=== PATIENT | female | born 1945 | race Caucasian/White ===

== ENCOUNTER 2017-04-13 16:37 | Observation (INO) | payer MEDICARE, OTHER ==
[~2017-04-13 16:37] MED LIST: ACETAMINOPHEN500 M4 PO; ACTOS45 MG PO; ADDERALL 10 MG10 M2 PO; ADDERALL PO; ADULT LOW DOSE81 M1 PO; ADVAIR HFA 115-12 GM IH; ADVAIR INHALER; ALLEGRA ALLERGY60 MG PO; ALLEGRA-D1 TAB PO; ALLEGRA30 MG PO; ALLERGY RELIEF10 M9 PO; ALTACE10 MG; AMITRIPTYLINE H50 MG PO; AMITRIPTYLINE100 MG PO; AMPHETAMINE SAL10 M1 PO; ANALGESIC BALM30 G1 EXT; ANTIBIOTIC; ANUCORT-HC25 M2 RC; ANUSOL-HC25 MG RC; APAP; ASPIR 8181 M1 PO; ASPIR 8181 MG PO; ASPIR-LOW81 M1 PO; ASPIRIN EC81 MG PO; ASPIRIN325 M3 PO; ATIVAN0.5 M1 PO; B COMPLETE1 EACH PO; BABY ASPIRIN81 MG; BACTRIM DS TAB1 EAC2 PO; BACTROBAN22 G1 TOP; BACTROBAN22 G1 TP; BENZONATATE100 MG PO; BISACODYL5 M1 PO; BUSPAR15 MG PO; BUSPIRONE HCL15 MG PO; CELEBREX200 M1 PO; CETIRIZINE HCL10 M1 PO; CIPRO250 M2 PO; CLONAZEPAM1 MG PO; CLONAZEPAM2 MG PO; COLACE100 M1 PO; COLACE100 MG PO; CPAP; CRANBERRY TABL1 EAC1 PO; CRANBERRY TABL1 EACH PO; CRANBERRY200 M1 PO; CRANBERRY500 M2 PO; CRESTOR20 MG PO; CYMBALTA30 MG PO; CYMBALTA60 M1 PO; CYMBALTA60 MG PO; DAZIDOX10 MG PO; DELTASONE10 MG PO; DETROL LA4 M1 PO; DIAZEPAM10 MG PO; DIAZEPAM5 M PO; DIAZEPAM5 M1 NG; DIPHENOXYLATE-1 EAC1 PO; DITROPAN XL15 MG PO; DITROPAN XL5 M3 PO; DITROPAN5 MG PO; DOC-Q-LACE100 M2 PO; DULCOLAX5 M1 PO; DULOXETINE HCL60 M1 PO; DURAGESIC1 EAC4 TOP; DURAGESIC1 PATCH TOP; EFFEXOR75 MG PO; ELAVIL100 MG PO; EUCERIN CREME TP; EUCERIN CREME60 GM TP; FENTANYL1 EAC5 TOP; FENTANYL1 PATCH . TOP; FLONASE16 G1; FLONASE16 GM NS; FUROSEMIDE20 MG PO; GLIPIZIDE ER5 M1 PO; GLIPIZIDE XL10 MG PO; GLIPIZIDE XL5 MG PO; GLUCAGON EME1 MG/KIT IM; GLUCERNA1 EACH PO; HUMALOG SQ; HUMALOG100 U/ML SQ; HUMALOG100 UNIT/2 SC; HYDROCODONE/APA1 CAP; IBUPROFEN800 M1 PO; IBUPROFEN800 MG PO; IMITREX100 M2 PO; IMODIUM2 MG PO; IPRATR-ALBUTEROL3 ML IH; KEFLEX500 M1 PO; KLONOPIN0.5 M1 PO; LANTUS100 U/ML; LANTUS100 U/ML SC; LASIX20 M1 PO; LASIX40 MG PO; LASIX80 MG PO; LEVAQUIN250 MG PO; LEVAQUIN500 MG PO; LEVAQUIN750 MG PO; LEVEMIR100 U/M SQ; LEVEMIR100 UNITS/ SC; LEVEMIR100 UNITS/ SQ; LIDOCAINE CREAM TOP; LISINOPRIL20 MG PO; LISINOPRIL5 MG PO; LOMOTIL 2.5-0.1 EACH PO; LOMOTIL TABLET1 TAB PO; LYRICA100 MG PO; LYRICA150 MG PO; LYRICA150 MG/CAP PO; LYRICA25 MG PO; LYRICA300 M1 PO; LYRICA300 MG PO; MACRODANTIN50 M2 PO; MAGNESIUM250 M2 PO; MELATONIN10 M6 PO; MELATONIN5 M1 PO; MELATONIN5 M5 PO; METHADONE HCL10 M1 PO; METOLAZONE5 MG PO; MICONAZOLE 745 GM VG; MILK OF MAGNESIA PO; MIRALAX17 G2 PO; MIRALAX17 GM PO; MIRAPEX1 M1 PO; MIRAPEX1 MG PO; MYCOSTATIN15 G1 APL; NASONEX17 G1; NEURONTIN100 M1 PO; NEURONTIN300 M1 PO; NEXIUM PO; NEXIUM40 MG; NEXIUM40 MG PO; NORCO 5/3251 TAB PO; NOVOLIN N100 U/ML SQ; NOVOLOG; NOVOLOG SC; NOVOLOG100 U/M SQ; NOVOLOG100 UNITS/ SC; NYSTATIN1 EAC9 MC; NYSTATIN60 ML PO; OMEPRAZOLE40 M2 PO; OXYBUTYNIN; OXYBUTYNIN CHLO15 M1 PO; OXYBUTYNIN CHLOR5 M2 PO; OXYBUTYNIN CHLOR5 MG PO; OXYCODONE; OXYCODONE HCL E10 MG PO; OXYCODONE HCL PO; OXYCODONE HCL10 M2 PO; OXYCODONE-APAP PO; OXYCODONE/APAP PO; OXYGEN; PERCOCET 10-321 EACH PO; PERCOCET 5-3251 EACH PO; PERCOCET 5/3251 TAB PO; PERCOCET 5MG/AP1 TA1 PO; PHENAZOPYRIDIN200 M3 PO; PREDNISONE10 MG PO; PREDNISONE20 MG PO; PREMPRO 0.625/21 TAB PO; PRILOSEC40 MG PO; PROCHLORPERAZIN10 MG PO; PROMETHAZINE HC25 M3 PO; QUETIAPINE FUM100 M1 PO; REFRESH LIQUIGE15 ML BOTH EYES; REMEDY NUTRASH TP; REQUIP0.25 M1; RESTFUL LEGS PO; RETIN-A20 GM TP; RISPERIDONE1 M1 PO; ROBITUSSIN-AC5 ML PO; SENEXON-S TABL1 EAC1 PO; SENNA PLUS TAB1 EACH PO; SENOKOT-S TABL1 EACH PO; SEROQUEL100 M2 PO; SEROQUEL25 M2 PO; SOMA350 MG; STOOL SOFTENER1 EAC4 PO; SULFAMETHOXAZO1 EAC5 PO; SULFAMYLON453.6 GM TP; SUMATRIPTAN SU100 M1 PO; SYMBICORT 160-1 PUFF INH; SYMBICORT 160-4.6 GM IH; TESSALON PERLE100 MG PO; TYLENOL325 M2 PO; TYLENOL325 MG PO; ULTRAM50 M1 PO; ULTRAM50 MG PO; UTI-STAT L3875 MG/31 PO; VAGISIL CREAM30 GM TP; VALIUM10 MG PO; VALIUM5 M1 PO; VALIUM5 MG PO; VITAMIN D 22000 UNIT PO; VITAMIN D2000 UNI1 PO; VITAMIN D2000 UNIT PO; VITAMIN D250000 UNIT PO; VITAMIN E400 UNI7 PO; XANAX; XANAX0.5 MG PO; ZINC PO; ZOFRAN ODT4 MG PO; ZOFRAN4 MG PO; ZYRTEC1010 PO; [UNRECOGNIZED DRUG - OTHER]; [UNRECOGNIZED DRUG - OTHER] PO; [UNRECOGNIZED DRUG - SUPPLY] MC
[2017-04-13] MEDS ORDERED: QUETIAPINE FUM100 M1 PO (16:42)
[2017-04-13] MEDS ORDERED: LYRICA150 MG/CAP PO (16:42)
[2017-04-13] MEDS ORDERED: BUSPIRONE HCL7.5 M1 PO (16:45)
[2017-04-13] MEDS ORDERED: ADDERALL XR 2020 M1 PO (16:46)
[2017-04-13] MEDS ORDERED: KLONOPIN1 M1 PO (16:47)
[2017-04-13] MEDS ORDERED: LOPERAMIDE2 M2 PO (16:48)
[2017-04-13] MEDS ORDERED: CVS DAILY MULT1 EAC1 PO (16:49)
[2017-04-13] MEDS ORDERED: GAS RELIEF80 M1 CH (16:52)
[2017-04-13] MEDS ORDERED: PROAIR HFA8.5 GM INH (16:52)
[2017-04-13 17:11] LABS: URINE BILIRUBIN NEGATIVE (NEG); URINE BLOOD SMALL (NEG); URINE GLUCOSE (UA) MODERATE (NEG); URINE KETONE NEGATIVE (NEG); URINE LEUKOCYTE ESTERASE POSITIVE (NEG); URINE NITRITE POSITIVE (NEG); URINE PROTEIN SMALL (NEG); URINE SPECIFIC GRAVITY 1.025 (1.003-1.030)
[2017-04-13 17:14] LABS: URINE APPEARANCE HAZY; URINE COLOR YELLOW
[2017-04-13 17:20] LABS: BASO % 0.6 % (0-2); EOS % 4.2 % (0-7); EOSINOPHIL ABSOLUTE COUNT 0.3 tho/cmm (0.0-0.7); HCT-HEMATOCRIT 37.6 % (34.0-49.0); HGB-HEMOGLOBIN 12.3 gm/dl (12.0-15.5); IMMATURE GRANULOCYTES ABSOLUTE 0.01 tho/cmm (0-0.03); IMMATURE GRANULOCYTES PERCENT 0.1 % (0-0.3); LYMPH % 34.2 % (20-45); LYMPH ABSOLUTE COUNT 2.4 tho/cmm (0.8-4.5); MCH (MEAN CORPUSCULAR HGB) 31.1 pg (28.0-32.0); MCHC MEAN CORPUSCULAR HGB CONC 32.7 % (32.0-36.0); MCV (MEAN CELL VOLUME) 94.9 fl (82.0-96.0); MEAN PLATELET VOLUME 10.8 cmc (9.4-12.4); MONO % 8.2 % (0-12); MONOCYTE ABSOLUTE COUNT 0.6 tho/cmm (0.0-1.2); NEUTROPHIL ABSOLUTE COUNT 3.7 tho/cmm (1.6-8.0); NEUTROPHIL-AUTOMATED 3.7 tho/cmm (1.6-8.0); NEUTROPHILS % 52.7 % (40-80); PLATELET COUNT 180 tho/cmm (150-450); RED BLOOD COUNT 3.96 mil/cmm (4.00-5.20); RED CELL DISTRIBUTION WIDTH 13.8 % (12.4-16.4); WHITE BLOOD COUNT 7.1 tho/cmm (4.0-10.0)
[2017-04-13 17:27] LABS: INR 0.9 INR (0.9-1.1); PROTHROMBIN TIME 10.6 SECONDS (9.0-13.6)
[2017-04-13 17:35] LABS: ABG CO2 ARTERIAL 30 mmol/L (21-27); ARTERIAL BLD GAS O2 SATURATION 96 % (95-98); ARTERIAL BLOOD GAS PCO2 53 mmHg (32-45); ARTERIAL PO2 81 mmHg (70-100); BICARBONATE 29 mmol/L (21-28); BLOOD GAS BASE EXCESS 3 mM/L (-/+3); PH 7.35 Units (7.35-7.45)
[2017-04-13 17:40] LABS: ALB/GLOB RATIO 0.9 (0.8-2.0); ALBUMIN 3.4 g/dl (3.5-5.0); ALCOHOL (ETOH) <10 mg/dl (<10); ALKALINE PHOSPHATASE 98 U/L (33-138); ALT/SGPT 21 U/L (12-78); ANION GAP 12 mmol/L (0-20); AST/SGOT 19 U/L (10-40); BILIRUBIN,TOTAL 0.3 mg/dl (0-1.5); BLOOD UREA NITROGEN 17 mg/dl (6-24); CARBON DIOXIDE-VENOUS 27 mmol/L (22-32); CHLORIDE 102 mmol/l (96-110); CREATININE 0.99 mg/dl (0.50-1.10); GLUCOSE 277 mg/dL (70-110); POTASSIUM 4.2 mmol/L (3.7-5.1); SODIUM 137 mmol/L (135-145); eGFR VALUE FOR BLACK 67 mL/Min
[2017-04-13 17:48] LABS: URINE BACTERIA 4+; URINE RBC 0-1 /[HPF] (0-5); URINE WBC 50-75 /[HPF] (0-5)
[2017-04-13 22:22] LABS: C-REACTIVE PROTEIN 0.8 mg/dl (0-0.9)
[2017-04-13 22:38] LABS: PROCALCITONIN <0.05 ng/ml (0.05-0.09)
[2017-04-14 06:00] LABS: ANION GAP 10 mmol/L (0-20); BLOOD UREA NITROGEN 13 mg/dl (6-24); CALCIUM 8.5 mg/dl (8.5-10.5); CARBON DIOXIDE-VENOUS 25 mmol/L (22-32); CHLORIDE 108 mmol/l (96-110); CREATININE 0.78 mg/dl (0.50-1.10); GLUCOSE 170 mg/dL (70-110); SODIUM 138 mmol/L (135-145); eGFR VALUE FOR BLACK 90 mL/Min
[2017-04-14 06:16] LABS: BASO % 0.5 % (0-2); EOS % 4.2 % (0-7); EOSINOPHIL ABSOLUTE COUNT 0.3 tho/cmm (0.0-0.7); HCT-HEMATOCRIT 39.9 % (34.0-49.0); HGB-HEMOGLOBIN 12.9 gm/dl (12.0-15.5); IMMATURE GRANULOCYTES ABSOLUTE 0.04 tho/cmm (0-0.03); IMMATURE GRANULOCYTES PERCENT 0.5 % (0-0.3); LYMPH % 35.3 % (20-45); LYMPH ABSOLUTE COUNT 2.7 tho/cmm (0.8-4.5); MCH (MEAN CORPUSCULAR HGB) 30.9 pg (28.0-32.0); MCHC MEAN CORPUSCULAR HGB CONC 32.3 % (32.0-36.0); MCV (MEAN CELL VOLUME) 95.5 fl (82.0-96.0); MEAN PLATELET VOLUME 11.5 cmc (9.4-12.4); MONO % 6.6 % (0-12); MONOCYTE ABSOLUTE COUNT 0.5 tho/cmm (0.0-1.2); NEUTROPHILS % 52.9 % (40-80); PLATELET COUNT 151 tho/cmm (150-450); RED BLOOD COUNT 4.18 mil/cmm (4.00-5.20); WHITE BLOOD COUNT 7.5 tho/cmm (4.0-10.0)
--- NOTE | 2017-04-14 21:38 | NUR ---
VIRTUAL CARE NOTE: REVIEWED PLAN OF CARE WITH PT. PT STATES IS DOING OK. HAS UPS AND DOWNS WHERE SHE FEELS GOOD THEN NOT. RUNS OF OUT STEAM. POSITIVE ENCOURAGEMENT GIVEN. INFORMED ON ABX GIVEN WILL HELP. IMPORTANCE OF STAYING ACTIVE IN HOSPITAL TO KEEP STAMINA AND ENERGY TO RETURN HOME. PT V/U. DENIES ANY CONCERNS OR COMPLAINTS. FEELS SHE IS NOT READY TO GO HOME YET. ENCOURAGED THAT WE WILL KEEP ASSESSING TO MAKE SURE SHE IS SAFE FOR HOME AND ALSO MAKE SURE THE INFECTION IS UNDER CONTROL. PT ASKED FOR A SNACK, PAGED FLOOR STAFF. ENCOURAGED FALL PRECAUTIONS AND TO NOTIFY STAFF FOR ANY NEEDS. PT V/U. WILL CONTINUE WITH CHART REVIEW.
[2017-04-15] MEDS ORDERED: KEFLEX500 M4 PO (09:55)
[2017-04-15] MEDS ORDERED: DISCONTINUE: (09:57)
--- NOTE | 2017-04-15 19:14 | NUR ---
VIRTUAL CARE NOTE: REVIEWED DC PLAN WITH PT AND SON. AGREEABLE TO MEDICATION CHANGES, ABX, AND DR HANCOCK APPT. FLOOR STAFF NOTIFIED TEACHING IS COMPLETE. PT AND SON V/U.
== END 2017-04-15 19:39 ==
LOC: EDMED 16:37 → EMR2 20:59 → 5WD 22:28
PROVIDERS: Emergency Medicine; ADMIT Hospitalist
PROC: 4A033R1 Measurement of Arterial Saturation, Peripheral, Percutaneous Approach (ICD-10-PCS; 2017-04-13)
PROC: 05HD33Z Insertion of Infusion Device into Right Cephalic Vein, Percutaneous Approach (ICD-10-PCS; principal; 2017-04-14)
DX: G92 Toxic encephalopathy (principal); T40.3X5A Adverse effect of methadone, initial encounter; E66.01 Morbid (severe) obesity due to excess calories; G89.4 Chronic pain syndrome; E11.9 Type 2 diabetes mellitus without complications; J44.9 Chronic obstructive pulmonary disease, unspecified; G47.33 Obstructive sleep apnea (adult) (pediatric); N30.00 Acute cystitis without hematuria; G25.81 Restless legs syndrome; E78.5 Hyperlipidemia, unspecified; M19.90 Unspecified osteoarthritis, unspecified site; K21.9 Gastro-esophageal reflux disease without esophagitis; I10 Essential (primary) hypertension; K58.9 Irritable bowel syndrome, unspecified; D63.8 Anemia in other chronic diseases classified elsewhere; R42 Dizziness and giddiness; R53.1 Weakness; Z79.4 Long term (current) use of insulin; Z79.82 Long term (current) use of aspirin; Z79.899 Other long term (current) drug therapy; Z88.0 Allergy status to penicillin; Z88.5 Allergy status to narcotic agent; Z88.8 Allergy status to other drugs, medicaments and biological substances; Z91.048 Other nonmedicinal substance allergy status; Z86.010 Personal history of colon polyps; Z90.49 Acquired absence of other specified parts of digestive tract; Z90.89 Acquired absence of other organs; Z95.0 Presence of cardiac pacemaker; Z98.890 Other specified postprocedural states
CPT/HCPCS: C1751; G0378; G0480; G8978-GP-CJ; G8979-GP-CJ; G8980-GP-CJ; G8987-GO-CJ; G8988-GO-CI; G8989-GO-CJ; J0696; J1650; J1815; J7030; P9612